=== PATIENT | male | born 1955 | race American Indian/Alaskan Native ===

== ENCOUNTER 2022-06-19 02:55 | Emergency (ER) | payer MEDICARE, OTHER ==
[2022-06-19] MEDS ORDERED: SODIUM BICARB 8.4% 50 MEQ/50 ML SYRINGE IV ONE (03:25)
[2022-06-19] MEDS ORDERED: EPINEPHrine 1 MG/10 ML SYRINGE ONE (03:25)
[2022-06-19] MEDS ORDERED: CALCIUM CHLORIDE 1,000 MG/10 ML SYRINGE IV ONE (03:25)
--- NOTE | 2022-06-19 03:43 | Emergency Department Report ---
HPI - General Chief Complaint: Cardiac Arrest/CPR PUI?: No Time Seen by Provider: 06/19/22 03:18 - HPI HPI: 67-year-old obese male with history of CVA, diabetes, congestive heart failure, per EMSs report, discharge from rehab less than 24 hours ago, brought in by EMS for witnessed cardiac arrest. EMS reports that they received a report from the patient's family stating the patient was having difficulty breathing. Upon their arrival, the patient was awake and talking but then began complaining of feeling dizzy. Per the report the patient then became unresponsive as they witnessed this. Patient was found to have no palpable pulse as he was witnessed becoming unresponsive. ACLS protocol initiated. EMS personnel placed a Tim airway in the patient's oropharynx for airway management. They administered epinephrine 1 mg x 3, 1 amp of sodium bicarbonate, and obtain a finger stick glucose of 208mg/DL. PT had no ROSC and remained in PEA arrest. Per their reports, the patient had a witnessed arrest by them at exactly 2:28 AM this morning. ED Past Medical Hx - Past Medical History Previous Medical History?: Yes Hx Hypertension: Yes Hx CVA: Yes ED Review of Systems ROS: Stated complaint: CARDIAC ARREST Other details as noted in HPI Comment: Unobtainable due to pts medical conditions Physical Exam - Physical Exam Vital Signs: Gen: morbidly obese M, lying on stretcher, undergoing CPR via EMS personnel, being admiinistered oxygen via Tim Airway, unresponsive HEENT: Normocephalic atraumatic, pupils dilated, 4 mm bilaterally, nonreactive, Neck: Full range of motion, no midline spinal tenderness palpation, no JVD, no carotid bruits, no nuchal rigidity CVS: Tachycardic, unable to assess and clearly differentiate S1 and S2 Pulmonary: Patient has no spontaneous breathing, coarse breath sounds and as air is being administered by external airway device by EMS Abdomen: Obese, distended, hypoactive bowel sounds, no pulsatile masses : External genitalia unremarkable, patient's boxer is covered in urine Extremities: No cyanosis no clubbing no edema, no intact distal peripheral pulses, Integumentary: skin is diffusely warm to touch, no overt evidence of trauma no overt evidence of infection Neuro: GCS 3; pt unresponsive Psych: pt unresponsive ED Medical Decision Making - Medical Decision Making 67-year-old morbidly obese male with multiple medical comorbidities brought in by EMS, and the patient was witnessed to go into PEA arrest by EMS personnel. EMS placed a Tim airway in patient's oropharynx for airway management. The patient was given 3 mg of epinephrine, 1 amp of sodium bicarbonate, and fingerstick glucose was obtained by them and it was 208. Patient had no return of spontaneous circulation. Prior to arrival the last epinephrine had been given 5 minutes before their arrival. ACLS protocol emergently restarted here upon the the pt's arrival. Pt had no ROSC. Bedside cardiac ultrasound demonstrated no spontaneous cardiac motion. Time of pronounced @ 03:13am. Critical Care Time: Yes Critical care time in (mins) excluding proc time.: 30 Critical care attestation.: If time is entered above; I have spent that time in minutes in the direct care of this critically ill patient, excluding procedure time. ED Disposition Clinical Impression: Cardiac arrest, Pulseless electrical activity Disposition: 20 Is pt being admited?: No Does the pt Need Aspirin: No Condition: Stable
== END 2022-06-19 05:34 ==
LOC: ED 02:55
DX: I46.9 Cardiac arrest, cause unspecified (principal); E11.9 Type 2 diabetes mellitus without complications; I11.0 Hypertensive heart disease with heart failure; I50.9 Heart failure, unspecified
CPT/HCPCS: 92950; 99291; J0171; J3490